=== PATIENT | female | born 1990 | race Caucasian/White ===

== ENCOUNTER 2016-04-28 08:17 | Emergency (ER) ==
[2016-04-28 08:32] VITALS: BP 145/84
--- NOTE | 2016-04-28 09:44 | PROVIDER DOCUMENTATION ---
HPI-General Adult - General Source: patient - History of Present Illness -Gen Adult Nature of Presenting Problems: Reports left groin pain since Tuesday. Reports started new job on Tuesday been doing heavy lifting and repeatitive motions. Reports hurts worse upon walking. Ambulatory. Location of Pain/Injury: reports: other (left groin) Severity: reports: moderate Onset/Duration: reports: 4 days ago Timing: reports: still present Similar Symptoms Previously?: No Recently seen or treated by another doctor?: No <Romain James - Last Filed: 04/28/16 09:48> <Sheba Moraes - Last Filed: 04/28/16 09:52> - General Chief Complaint: Hip Pain Stated Complaint: EXTREMITY PAIN Time Seen by Provider: 04/28/16 08:36 Allergies/Adverse Reactions: Patient Allergies Allergy/AdvReac Type Severity Reaction Status Date / Time Penicillins Allergy ANAPHYLAXIS Verified 02/23/15 14:40 Home Medications: Sulfamethoxazole/Trimethoprim [Bactrim Ds Tablet] 1 tab PO BID 10/05/15 Review of Systems - Adult - REVIEW OF SYSTEMS - ADULT Constitutional: denies: chills, fever, fatique Eyes: reports: no symptoms reported Ears, Nose, Mouth & Throat: reports: no symptoms reported Cardiovascular: denies: chest pain, irregular heart rate, orthopnea Respiratory: reports: no symptoms reported Gastrointestinal: reports: no symptoms reported Genitourinary: reports: no symptoms reported Musculoskeletal: reports: see HPI Integumentary: reports: no symptoms reported Neurological: reports: no symptoms reported Psychiatric: reports: no symptoms reported Endocrine: reports: no symptoms reported Hematologic/Lymphatic: reports: no symptoms reported Allergic/Immunologic: reports: no symptoms reported All Other Systems: Reviewed and Negative <Romain James - Last Filed: 04/28/16 09:48> Past History - Adult - PAST MEDICAL HISTORY-ADULT Review of Records: reports: Nursing Assessment Review Major Childhood Illnesses: reports: denies history Cardiovascular: reports: denies history - PRIOR SURGERIES/PROCEDURES Surgical/Procedure History: reports: other (wisdom teeth) - PRIOR HOSPITALIZATIONS Prior Hospitalizations: reports: none - IMMUNIZATION STATUS Childhood Immunizations: See Nurse Assessment Flu Vaccine: See Nurse Assessment - FAMILY HISTORY Family History: reviewed, not pertinent - SOCIAL HISTORY Smoking: cigarettes, less than 1 pack/day Provider spent 3-5 mins advising pt. on dangers of tobacco.: Discussed manners to quit use, and f/u contacts for add'l counseling. Substance Use: none/never <Romain James - Last Filed: 04/28/16 09:48> Physical Exam-General - PHYSICAL EXAM-ADULT Initial Vital Signs Reviewed: Yes - CONSTITUTIONAL General Appearance: appears well, alert, no apparent distress - EYES Eyes: PERRL/EOMI, pink conjunctivae - HEAD, EARS, NOSE, MOUTH & THROAT HENMT: normocephalic/atraumatic, moist mucous membranes, normal ENT inspection - NECK Neck: non-tender, full range of motion, supple, normal inspection - RESPIRATORY Respiratory: chest non-tender, lungs clear, normal breath sounds, no pleuratic chest pain, no respiratory distress, no accessory muscle use - CARDIOVASCULAR Cardiovascular: normal peripheral pulses, regular rate, rhythm, no edema - GASTROINTESTINAL (ABDOMEN) Abdominal Exam: normal bowel sounds, non tender, soft, no organomegaly, no pulsatile mass. negative: hernia - LYMPHATIC Lymphatic: no adenopathy - MUSCULOSKELETAL Back Exam: normal inspection, no CVA tenderness, no vertebral tenderness Extremity: normal range of motion, non-tender, normal gait, normal inspection, no pedal edema, no calf tenderness, pelvis stable - SKIN Integumentary: normal color, normal turgor, warm/dry - NEUROLOGIC Neurologic: grossly normal, no motor/sensory deficits - PSYCHIATRIC Psych/Mental Status: normal mood/affect, normal thought content, normal thought process, oriented x 3 <Romain James - Last Filed: 04/28/16 09:48> Progress - PLAN OF CARE/RESULTS Progress/Plan/Lab Results: Orders Category Date Time Status XRAY PELVIS W/HIP 2-3VW LT [RAD] Stat Exams 04/28/16 08:42 Taken TEST-URINE [PREG] Stat Lab 04/28/16 08:[address] [URINALYSIS] Stat Lab 04/28/16 08:42 Ordered Vital Signs - 24 hr 04/28/16 08:30 Temperature 98.1 F Pulse Rate 74 Respiratory 18 Rate Blood Pressure 145/84 O2 Sat by Pulse 99 Oximetry - XRAY 1 XRAY: Left XRAY Study: Hip Impression: Normal XRAY Interpretation: no fx <Romain James - Last Filed: 04/28/16 09:48> - REASSESSMENT Reassessment #1 Time Reassessed: 09:49 Status: other (Reports started a new job X 1 week ago. Does heavy lifting and twisting. Reports she believes twisted her groin. Pain located at L lateral groin area, very localized. No concerns for DVT) <Devan Moraeskaylie Niurka - Last Filed: 04/28/16 09:52> Departure - Departure Time of Disposition Order: 09:47 Certified Medical Emergency: Emergent <Romain James - Last Filed: 04/28/16 09:48> - Departure Time of Disposition Order: 09:51 Certified Medical Emergency: Emergent <Devan Moraeskaylie Bah - Last Filed: 04/28/16 09:52> - Departure DIAGNOSIS: Groin strain Qualifiers: Encounter type: initial encounter Laterality: left Qualified Code(s): S76.212A - Strain of adductor muscle, fascia and tendon of left thigh, initial encounter Disposition: HOME 01 Condition: Stable Additional Instructions: ED Follow Up Instructions: You have been treated by a care provider in the Emergency Department. These instructions are being provided to you so you can have an understanding of how to care for yourself upon discharge. Upon discharge from the Emergency Department, you are responsible for making arrangements for follow-up care by a physician of your choice. Take all prescribed medications as directed. Return to the Emergency Department immediately for any new or worsening symptoms. You may call the Physician Referral phone number at [phone] to obtain a list of Physicians who are taking new patients. Prescriptions: Cyclobenzaprine [Flexeril] 10 mg PO HS #15 tablet Naproxen [Naprosyn] 500 mg PO BID #20 tablet Referrals: Matt Hemphill MD [Primary Care Provider] - Attestation - Scribe Verification/Attestation Scribe:: Romain James Acting as Scribe for:: Sheba Moraes Scribe documention review:: This chart was documented by a scribe and accurately reflects the service the provider performed and the decisions made by the provider. <Romain James - Last Filed: 04/28/16 09:48> Physician Attestation
--- NOTE | 2016-04-28 10:17 | Diag Imaging Result Document ---
PROCEDURE NAME: XRAY PELVIS W/HIP 2-3VW LT - 04/28/2016 X-RAY PELVIS WITH HIP, 2 TO 3 VIEWS, LEFT: INDICATION: Hip pain. FINDINGS: The bone densitiy is within normal limits. No fracture or destructive lesion is identified. The joint space is well maintained. No sacroiliitis is demonstrated. IMPRESSION: No acute abnormalities left hip are appreciated. [facility]
== END 2016-04-28 10:07 | disposition home or self-care (01) ==
LOC: P.ED 08:17
DX: S76.212A Strain of adductor muscle, fascia and tendon of left thigh, initial encounter (principal); R10.30 Lower abdominal pain, unspecified; F17.210 Nicotine dependence, cigarettes, uncomplicated; Z71.6 Tobacco abuse counseling; M25.552 Pain in left hip
CPT/HCPCS: 99283

== ENCOUNTER 2019-07-15 23:01 | Observation (INO) ==
[2019-07-15 23:25] LABS: URINE SOURCE CLEAN CATCH
[2019-07-15] MEDS ORDERED: TYLENOL PO ONE (23:34)
--- NOTE | 2019-07-15 23:52 | PROVIDER DOCUMENTATION ---
HPI-Abdominal Pain/GI Problem - General Chief Complaint: Abdominal Pain Stated Complaint: ABD PAIN Time Seen by Provider: 07/15/19 23:08 Source: patient Allergies/Adverse Reactions: Patient Allergies Allergy/AdvReac Type Severity Reaction Status Date / Time Penicillins Allergy ANAPHYLAXIS Verified 07/15/19 23:13 Home Medications: Home Medication List Medication Instructions Recorded Confirmed Last Taken Type Albuterol Sulfate Inhaler 2 puff INH [id number] #1 inhaler 08/11/18 Unknown Rx [Ventolin Hfa] Benzonatate [Tessalon Perle] 100 mg PO TID #30 cap 08/11/18 Unknown Rx Doxycycline 100 mg PO BID #20 tab 08/11/18 Unknown Rx Methylprednisolone [Medrol Dosepak] 4 mg PO DIRECTED #1 pkg 08/11/18 Unknown Rx Ibuprofen 800 mg PO TID PRN PRN #12 tab 02/14/19 Unknown Rx - History of Present Illness-ABD Nature of Presenting Problems: Patient is a 28 yof who c/o lower abdominal pain described as "sharp" since 8 pm tonight. Also reports several loose stools today. LMP 2 months ago. Positive preg test in the ED. . Pt has had some spotting today. Denies n/v, fever, or any other complaints. Pt non-toxic. Review of Systems - Adult - REVIEW OF SYSTEMS - ADULT Constitutional: reports: no symptoms reported. denies: chills, fever Eyes: reports: no symptoms reported Ears, Nose, Mouth & Throat: reports: no symptoms reported Cardiovascular: reports: no symptoms reported Respiratory: reports: no symptoms reported Gastrointestinal: reports: see HPI Genitourinary: reports: see HPI Musculoskeletal: reports: no symptoms reported Integumentary: reports: no symptoms reported Neurological: reports: no symptoms reported Psychiatric: reports: no symptoms reported Endocrine: reports: no symptoms reported Hematologic/Lymphatic: reports: no symptoms reported Allergic/Immunologic: reports: no symptoms reported All Other Systems: Reviewed and Negative Past History - Adult - PAST MEDICAL HISTORY-ADULT Review of Records: reports: Nursing Assessment Review, Medications Reviewed, Social history reviewed & non-contributory. Major Childhood Illnesses: reports: denies history Cardiovascular: reports: denies history Respiratory: reports: denies history Gastrointestinal: reports: denies history Obstetrical/Gynecological: reports: denies history Genitourinary: reports: denies history Musculoskeletal: reports: denies history Neurological: reports: denies history Psychiatric: reports: denies history Endocrine/Immune: reports: denies history Other Conditions: reports: denies history - PRIOR SURGERIES/PROCEDURES Surgical/Procedure History: reports: appendectomy, other (wisdom teeth) - PRIOR HOSPITALIZATIONS Prior Hospitalizations: reports: none - IMMUNIZATION STATUS Childhood Immunizations: See Nurse Assessment Flu Vaccine: See Nurse Assessment - FAMILY HISTORY Family History: reviewed, not pertinent - SOCIAL HISTORY Smoking: non-smoker Physical Exam-General - PHYSICAL EXAM-ADULT Initial Vital Signs Reviewed: Yes - CONSTITUTIONAL General Appearance: alert, no apparent distress. negative: lethargic, slow to respond - EYES Eyes: PERRL/EOMI, pink conjunctivae - HEAD, EARS, NOSE, MOUTH & THROAT HENMT: normocephalic/atraumatic, moist mucous membranes - NECK Neck: full range of motion, supple, normal inspection - RESPIRATORY Respiratory: chest non-tender, lungs clear, normal breath sounds, no pleuratic chest pain, no respiratory distress, no accessory muscle use - CARDIOVASCULAR Cardiovascular: normal peripheral pulses, regular rate, rhythm, no gallop, no murmur - GASTROINTESTINAL (ABDOMEN) Abdominal Exam: normal bowel sounds, soft, tenderness (mild- all across lower abdomen). negative: distended, guarding, rigid, rebound - MUSCULOSKELETAL Back Exam: normal inspection, no CVA tenderness Extremity: normal range of motion, non-tender, normal inspection - SKIN Integumentary: normal color, warm/dry. negative: cyanosis, diaphoresis, hiral dice, mottled, pallor - NEUROLOGIC Neurologic: grossly normal, no motor/sensory deficits - PSYCHIATRIC Psych/Mental Status: normal mood/affect, normal thought content, normal thought process, oriented x 3 Progress - PLAN OF CARE/RESULTS Progress/Plan/Lab Results: Vital Signs - 8 hr 07/15/19 23:08 Temperature 97.9 F Pulse Rate 76 Respiratory Rate 20 Blood Pressure 134/73 O2 Sat by Pulse Oximetry 98 Bedside Urine ED: Urine Bedside Start: 07/15/19 23:16 Freq: NOW Status: Active Protocol: Activity Type Activity Date Activity User E-Sign Co-Sign Detail Recorded Client Recorded Date Recorded By Document 07/15/19 23:16 [id number] 07/15/19 23:19 [id number] 07/15/19 23:16 Point of Care [Bedside Point of Care] -Lot # [id number] - Results Positive -Control Line Visible? Yes Laboratory Results - last 24 hr 07/15/19 23:15 Urine Source CLEAN CATCH Orders Category Date Time Status ED: Urine Bedside NOW Care 07/15/19 23:16 Active US TRANSVAGINAL OB [US] Stat Exams 07/15/19 23:34 Ordered CBC WITH DIFF [HEME] Stat Lab 07/15/19 23:34 Ordered COMPREHENSIVE METABOLIC PANEL [CHEM] Stat Lab 07/15/19 23:34 Uncollected URINALYSIS W/POSS RFLX CULT [URINALYSIS] Stat Lab 07/15/19 23:15 Results Acetaminophen [Tylenol] Med 07/15/19 23:34 Discontinued 650 mg PO NOW ONE Result Diagrams: 07/16/19 00:20 07/16/19 00:20 - REASSESSMENT Reassessment #1 Time Reassessed: 02:00 Status: unchanged Reassessment Comment: no active bleeding,informed patient of U/S results and plan to admit to [facility] - ULTRASOUND (By Radiology) 1 US Study: Transvaginal US Results: no IUP, cannot rule out ectopic - CONSULTS/PCP/HOSPITALIST Notification #1 *Consult/PCP/Hospitalist*: Dr. Osorio, OB information management manager Time Discussed: 02:00 Consult Disposition: Admit - CHANGE OF SHIFT REPORT (ED Provider) 1 Report Given and Care Transferred to:: Dr. Rooney Time of Transfer: 23:53 Items Pending: Labs, Ultrasound Results Departure - Departure Date of Disposition Decision: 07/16/19 Time of Disposition Decision: 02:09 DIAGNOSIS: Vaginal bleeding, Early stage of Disposition: ADMITTED INPATIENT 09 Certified Medical Emergency: Emergent Condition: Stable - Critical Care Note This patient required my direct & personal management of CC.: No Attestation - Physician/ DANIELLE Attestation Patient care was provided by Advanced Practice Provider:: Yes Advanced Practice Provider:: Denilson Soler Advanced Practice Provider documentation review:: The Mid-level provider documentation, treatment plan and medical decision making was reviewed by the physician who agrees with all treatment and medical decision making by the MLP. The physician spent face to face time with patient:: Yes Advanced Practice Provider documentation review:: Supervising physician onsite and consulted in the evaluation and care of this patient. The physician did have a face to face encounter with the patient.
[2019-07-16 00:01] LABS: BILIRUBIN URINE NEGATIVE (NEGATIVE); BLOOD URINE MODERATE (NEGATIVE); COLOR YELLOW; GLUCOSE URINE TRACE mg/dL (NEGATIVE); KETONE URINE TRACE mg/dL (NEGATIVE); LEUKOCYTES URINE NEGATIVE (NEGATIVE); NITRITE URINE NEGATIVE (NEGATIVE); PH URINE 5.5; PROTEIN URINE 70 mg/dL (NEGATIVE); SP GRAVITY URINE 1.031; TURBIDITY URINE CLEAR (CLEAR); UR EPITHELIAL CELLS <10 /HPF (<10); URINE BACTERIA NEGATIVE /HPF; URINE RBC <10 /HPF (<10); URINE WBC <10 /HPF (<10); UROBILINOGEN URINE NORMAL (NORMAL)
[2019-07-16 00:52] LABS: BASO# 0.03 X1000 (0.0-0.2); BASO% 0.2 % (0.0-0.8); EOS# 0.37 X1000 (0.0-0.7); EOS% 2.3 % (0.0-10.0); HEMATOCRIT 41.9 % (37.0-47.0); HEMOGLOBIN 14.5 g/dL (12.0-16.0); IMM GRAN# 0.02 X1000 (0.0-0.04); IMM GRAN% 0.1 % (0.0-0.5); LYMPH# 2.71 X1000 (1.2-3.4); LYMPH% 16.5 % (20.5-51.1); MCH 30.2 PG (27-31); MCHC 34.6 g/dL (33-37); MCV 87.3 FL (81-99); MONO# 0.89 X1000 (0.11-0.59); MONO% 5.4 % (1.7-9.3); MPV 10.7 FL (7.4-10.4); NEUT# 12.42 X1000 (1.4-6.5); NEUT% 75.5 % (42.2-75.2); PLT 365 X1000 (130-400); RDW 12.1 % (11.5-14.5); WBC 16.44 X1000 (4.8-10.8)
[2019-07-16 01:38] LABS: AGAP 15; ALBUMIN 4.7 g/dL (3.5-5.0); ALKALINE PHOSPHATASE 44 U/L (32-104); BUN 10 mg/dL (8-22); CALCIUM 9.4 mg/dL (8.8-10.2); CHLORIDE 102 mmol/L (98-107); COSMO 277; CREATININE 0.5 mg/dL (0.5-0.9); ESTIMATED GFR > 60; GLUCOSE 108 mg/dL (70-104); GOT 20 U/L (10-30); GPT 30 U/L (10-36); POTASSIUM 3.8 mmol/L (3.5-5.1); SODIUM 139 mmol/L (136-145); TCO2 22 mmol/L (25-35); TOTAL PROTEIN 7.3 g/dL (6.3-8.3)
[2019-07-16] MEDS ORDERED: TYLENOL PO ONE (04:30)
[2019-07-16] MEDS: LR 1,000 ML IV SCH ×2 (04:43→11:24)
[2019-07-16 05:16] LABS: INR 0.88
[2019-07-16 05:17] LABS: PTT 26.8 Seconds (22.3-41.8)
--- NOTE | 2019-07-16 05:42 | HISTORY AND PHYSICAL ---
CHIEF COMPLAINT: Abdominal pain and vaginal bleeding. HISTORY OF PRESENT ILLNESS: A 28-year-old G1, P0, at approximately 9 weeks gestation who presented to [facility] with a complaint of abdominal pain and vaginal bleeding that started at approximately 8:30 in the evening on Tuesday night. She described the pain as severe and cramping that came and went. It would last approximately 5 minutes and occurred every 2 minutes. While she was in the ER, she states that this pain resolved after she passed a large blood clot. She also states that she saturated 3 large pads while she was in the emergency room. She was unaware of this . She states that she has irregular periods and frequently misses cycles. She states her last menstrual period was approximately 2 months ago. She is sexually active and last had intercourse on Tuesday night. She denies any pain with intercourse. OBSTETRICAL HISTORY: G1 is the current . GYNECOLOGIC HISTORY: She denies any history of sexually transmitted infections. She has never had a Pap smear. She describes her periods as irregular and frequently skip months. Menarche was at age 15. PAST MEDICAL HISTORY: Obesity. MEDICATIONS: None. ALLERGIES: Penicillin. She states she had anaphylactic reaction in childhood. PAST SURGICAL HISTORY: Laparoscopic appendectomy in January of 2018. She denies any rupture of her appendix prior to the surgery. [place] teeth extraction. SOCIAL HISTORY: She smokes 1-1/2 packs per day and has for 11 years. She occasionally uses alcohol. She denies any drug use. FAMILY HISTORY: Father with hypertension and seizure disorder. Mother with hypertension and diabetes. REVIEW OF SYSTEMS: Positive nausea. Positive loose stool. She denies any fever, chills, or vomiting, chest pain, or shortness of breath. PHYSICAL EXAMINATION: VITAL SIGNS: Temperature 97.9 degrees, blood pressure 136/63, heart rate 69, O2 saturation 99% on room air, and respiratory rate 18. GENERAL: Appears well, alert, and in no acute distress. LUNGS: Clear to auscultation bilaterally. No respiratory distress. CARDIOVASCULAR: Regular rate and rhythm. ABDOMEN: Soft. Obese. Nontender. Nondistended. No rebound or peritoneal signs. PELVIC: Sterile speculum exam, no active bleeding coming from the cervix. Cervix approximately half a cm dilated, scant amount of dark red blood in the vaginal vault. No cervical motion tenderness. STI swab obtained. EXTREMITIES: No clubbing, cyanosis, or edema. NEUROLOGIC: Cranial nerves 2-12 grossly intact. LABORATORY DATA: White blood cell count 16.4, hemoglobin 14.5, hematocrit 41.9, and platelets 365,000. Sodium 138, potassium 3.8, chloride 102, carbon dioxide 22, BUN 10, creatinine 0.5, blood glucose 108, AST 20, and ALT 30. Urinary test positive. A quantitative beta HCG 20,813. Blood type A positive. Urinalysis 70 protein, trace ketones, and moderate blood. Transvaginal ultrasound findings no intrauterine gestation. Uterus anteverted measuring up to 8.6 cm. Endometrial stripe 10 mm. Nabothian cyst present. Ovaries normal in size and echotexture. Small follicles present. No free fluid. IMPRESSION: No intrauterine gestation identified. Considerations would include intrauterine gestation too small to visualize sonographically failure or less likely occult ectopic. ASSESSMENT AND PLAN: A 28-year-old G1 at approximately 9 weeks by uncertain LMP with of unknown location (ectopic ) versus spontaneous with obesity and tobacco abuse. 1. Hemodynamically stable, afebrile. 2. We will order gonorrhea, chlamydia, coag's, and type and screen. 3. Discussed ultrasound findings with the patient and hCG level above the discriminatory zone with patient. Given patient's history of passing a large blood clot and her pain resolving, this is suggestive of spontaneous . We will monitor patient closely, and repeat transvaginal ultrasound and beta HCG. 4. NPO at this time. 5. IV fluid hydration with lactated Ringer's at 125 an hour.
[2019-07-16 07:14] VITALS: BP 107/54
--- NOTE | 2019-07-16 07:27 | PROVIDER PROGRESS NOTE ---
- Subjective Pt is a 28 yo admitted with of unknown locations vs. SAB. Pt tearful regarding abnormal . However denies abdominal pain and reports decreased bleeding. Now describing vaginal spotting. Reports abdominal pain completely resolved after passing large clot in ED. Pt ambulating and urinating without difficulty. Denies dizziness, SOB, CP, N/V. Physical Exam Objective Vital Signs - 8 hr 07/16/19 04:00 07/16/19 07:08 Temperature 98.0 F 97.1 F L Pulse Rate 68 69 Respiratory Rate 18 16 Blood Pressure 136/63 107/54 O2 Sat by Pulse Oximetry 99 99 - Constitutional General Appearance: appears well, alert, no apparent distress - RESPIRATORY Respiratory: lungs clear - CARDIOVASCULAR Cardiovascular: regular rate, rhythm - GASTROINTESTINAL (ABDOMEN) Abdominal Exam: non tender, soft - GENITOURINARY Female Genitalia/Pelvic Exam: negative: active bleeding - MUSCULOSKELETAL Extremity: no calf tenderness - PSYCHIATRIC Psych/Mental Status: normal mood/affect, oriented x 3 Active Medications Generic Name Dose Route Start Last Admin Trade Name Freq PRN Reason Stop Dose Admin Lactated Ringer's 1,000 mls @ 0 mls/hr 07/16/19 04:30 07/16/19 04:43 Lr IV 125 mls/hr .Q0M POLY Administration As Directed Bedside Urine ED: Urine Bedside Start: 07/15/19 23:16 Freq: NOW Status: Active Protocol: Activity Type Activity Date Activity User E-Sign Co-Sign Detail Recorded Client Recorded Date Recorded By Document 07/15/19 23:16 [id number] 07/15/19 23:19 [id number] 07/15/19 23:16 Point of Care [Bedside Point of Care] -Lot # [id number] - Results Positive -Control Line Visible? Yes Laboratory Results - last 24 hr 07/15/19 07/16/19 07/16/19 23:15 00:20 00:20 WBC 16.44 H RBC 4.80 Hgb 14.5 Hct 41.9 MCV 87.3 MCH 30.2 MCHC 34.6 RDW Std Deviation 12.1 Plt Count 365 MPV 10.7 H Immature Gran % (Auto) 0.1 Neut % (Auto) 75.5 H Lymph % (Auto) 16.5 L [place] % (Auto) 5.4 Eos % (Auto) 2.3 Baso % (Auto) 0.2 Immature Gran # (Auto) 0.02 Neut # (Auto) 12.42 H Lymph # (Auto) 2.71 [place] # (Auto) 0.89 H Eos # (Auto) 0.37 Baso # (Auto) 0.03 PT INR PTT (Actin FS) Fibrinogen Sodium Potassium Chloride Carbon Dioxide Anion Gap BUN Creatinine Estimated GFR/1.73 m2 BUN/Creatinine Ratio Glucose Calculated Osmolality Calcium Total Bilirubin AST ALT Alkaline Phosphatase Total Protein Albumin Globulin Albumin/Globulin Ratio Ser , Semi-Qnt Urine Source CLEAN CATCH Urine Color YELLOW Urine Turbidity CLEAR Urine pH 5.5 Ur Specific [employer] [place] 1.031 Urine Protein 70 A Ur Glucose (Stick) TRACE Ur Ketones (Stick) TRACE A Urine Blood MODERATE A Urine Nitrite NEGATIVE Urine Bilirubin NEGATIVE Urobilinogen Dipstick NORMAL Urine Leukocytes NEGATIVE Urine WBC (Auto) <10 Urine RBC (Auto) <10 U Epithel Cells (Auto) <10 Urine Bacteria (Auto) NEGATIVE Blood Type A POSITIVE Antibody Screen 07/16/19 07/16/19 07/16/19 00:20 00:20 04:55 WBC RBC Hgb Hct MCV MCH MCHC RDW Std Deviation Plt Count MPV Immature Gran % (Auto) Neut % (Auto) Lymph % (Auto) [place] % (Auto) Eos % (Auto) Baso % (Auto) Immature Gran # (Auto) Neut # (Auto) Lymph # (Auto) [place] # (Auto) Eos # (Auto) Baso # (Auto) PT 12.0 INR 0.88 PTT (Actin FS) 26.8 Fibrinogen Sodium 139 Potassium 3.8 Chloride 102 Carbon Dioxide 22 L Anion Gap 15 BUN 10 Creatinine 0.5 Estimated GFR/1.73 m2 > 60 BUN/Creatinine Ratio 20 Glucose 108 H Calculated Osmolality 277 Calcium 9.4 Total Bilirubin 0.20 AST 20 ALT 30 Alkaline Phosphatase 44 Total Protein 7.3 Albumin 4.7 Globulin 3.0 Albumin/Globulin Ratio 2.0 Ser , Semi-Qnt 53751.0 Urine Source Urine Color Urine Turbidity Urine pH Ur Specific [place] Urine Protein Ur Glucose (Stick) Ur Ketones (Stick) Urine Blood Urine Nitrite Urine Bilirubin Urobilinogen Dipstick Urine Leukocytes Urine WBC (Auto) Urine RBC (Auto) U Epithel Cells (Auto) Urine Bacteria (Auto) Blood Type Antibody Screen 07/16/19 07/16/19 04:55 04:55 WBC RBC Hgb Hct MCV MCH MCHC RDW Std Deviation Plt Count MPV Immature Gran % (Auto) Neut % (Auto) Lymph % (Auto) [place] % (Auto) Eos % (Auto) Baso % (Auto) Immature Gran # (Auto) Neut # (Auto) Lymph # (Auto) [place] # (Auto) Eos # (Auto) Baso # (Auto) PT INR PTT (Actin FS) Fibrinogen 356.0 Sodium Potassium Chloride Carbon Dioxide Anion Gap BUN Creatinine Estimated GFR/1.73 m2 BUN/Creatinine Ratio Glucose Calculated Osmolality Calcium Total Bilirubin AST ALT Alkaline Phosphatase Total Protein Albumin Globulin Albumin/Globulin Ratio Ser , Semi-Qnt Urine Source Urine Color Urine Turbidity Urine pH Ur Specific [employer] [place] Urine Protein Ur Glucose (Stick) Ur Ketones (Stick) Urine Blood Urine Nitrite Urine Bilirubin Urobilinogen Dipstick Urine Leukocytes Urine WBC (Auto) Urine RBC (Auto) U Epithel Cells (Auto) Urine Bacteria (Auto) Blood Type A POSITIVE Antibody Screen NEGATIVE - Assessment & Plan (1) SAB (spontaneous ) Status: Acute Plan: A 28-year-old G1 at approximately 9 weeks by uncertain LMP with of unknown location (ectopic ) versus spontaneous with obesity and tobacco abuse. 1. Hemodynamically stable, afebrile. 2. Gonorrhea, chlamydia pending 3. Repeat beta HCG quant. 4. NPO at this time. 5. Continue IV fluid hydration with lactated Ringer's at 125 an hour. 6. A positive 7. If HCG quant decreasing, will discharge home and f/u as out pt
[2019-07-16] MEDS ORDERED: VENTOLIN HFA INH PRN (07:30)
--- NOTE | 2019-07-16 07:51 | Diag Imaging Result Doc PS360 ---
EXAM: US TRANSVAGINAL OB INDICATION: lower abdominal pain, + preg test, spotting TECHNIQUE: COMPARISON: None. FINDINGS: No intrauterine gestational sac is appreciated. The uterus is normal in echotexture measuring 8.6 x 5.3 x 5.1 cm. The endometrium measures 1 cm in thickness. A small cervical nabothian cyst is noted incidentally. There is a 1.4 cm dominant right ovarian follicle. The ovaries are grossly normal in echotexture with the right ovary measuring 3.8 cm and the left ovary measuring 3.5 cm in the greatest dimensions. No solid adnexal masses or pelvic free fluid is identified. IMPRESSION: No intrauterine gestational sac is appreciated. This may be because of a very early . However, close serum hCG and ultrasound surveillance is recommended to assure normal development. Unremarkable pelvic ultrasound, otherwise. Electronically signed by Van George 07/16/2019 7:49 AM
== END 2019-07-16 13:30 | disposition home or self-care (01) ==
LOC: P.ED 23:01 → LD 23:01
PROVIDERS: ATTEND Student in an Organized Health Care Education/Training Program